=== PATIENT | male | born 1950 | race Caucasian/White ===

== ENCOUNTER 2022-06-24 12:24 | Emergency (ER) | payer MEDICARE ==
[2022-06-24] MEDS ORDERED: Fentanyl 100 MCG/2 ML VIAL ONE (15:03)
[2022-06-24] MEDS ORDERED: Midazolam HCl 2 mg/2 ml Vial ONE (15:03)
== END 2022-06-24 16:00 | disposition home or self-care (01) ==
LOC: ERS 12:24
DX: S43.015A Anterior dislocation of left humerus, initial encounter (principal); W10.9XXA Fall (on) (from) unspecified stairs and steps, initial encounter; Y93.01 Activity, walking, marching and hiking; Z87.891 Personal history of nicotine dependence
CPT/HCPCS: 23650; 96374; 99152; J2250; J3010